=== PATIENT | male | born 1990 | race Caucasian/White ===

== ENCOUNTER 2022-06-05 10:55 | Emergency (ER) | payer SELFPAY ==
[~2022-06-05] VITALS: Ht 190.5 cm; Wt 250.0 kg
[2022-06-05] VITALS (19 sets, daily range): BP systolic 94–136; BP diastolic 55–89
== END 2022-06-05 12:56 | disposition home or self-care (01) | DRG 313 ==
LOC: ED 10:55
DX: R07.89 Other chest pain (principal); F17.210 Nicotine dependence, cigarettes, uncomplicated; F41.0 Panic disorder [episodic paroxysmal anxiety]; F14.10 Cocaine abuse, uncomplicated